=== PATIENT | female | born 1995 | race Asian ===

== ENCOUNTER 2019-01-26 18:26 | Emergency (ER) | payer OTHER ==
[~2019-01-26] VITALS: Ht 170.2 cm; Wt 70.8 kg
[2019-01-26] MEDS ORDERED: DOCU100C10 PO (18:56)
[2019-01-26] MEDS ORDERED: MOBIC15 MG PO (18:56)
[2019-01-26] MEDS ORDERED: LACTULOSE PO (18:57)
[2019-01-26] MEDS ORDERED: [UNRECOGNIZED DRUG - OTHER] PO (18:57)
[2019-01-26] MEDS ORDERED: OXYC5TAB53 PO (18:58)
[2019-01-26] MEDS ORDERED: DICYCLOMINE HYD20 MG PO (18:59)
[2019-01-26 19:28] LABS: PLATELET COUNT 271 K/uL (152-353)
[2019-01-26 19:35] LABS: POTASSIUM 3.8 mmol/L (3.6-5.2)
[2019-01-26 22:40] VITALS: BP 136/94; TEMP 98.1
== END 2019-01-26 22:41 | disposition home or self-care (01) ==
LOC: ED 18:26
PROVIDERS: Emergency Medicine
DX: R10.84 Generalized abdominal pain (principal)
CPT/HCPCS: 36415; 80053; 82150; 83690; 85027; 96374; 99284; J1885; Q9963